=== PATIENT | male | born 1995 | race Two or more races ===

== ENCOUNTER 2019-12-10 04:31 | Emergency (ER) | payer SELFPAY ==
[~2019-12-10] VITALS: Ht 167.6 cm; Wt 68.2 kg
[2019-12-10 04:33] VITALS: BP 136/73
[2019-12-10] MEDS ORDERED: LIDOCAINE 1%/EPI 1:200,000/PF 10 ML VIAL INJ ONE (05:00)
[2019-12-10] MEDS ORDERED: BACITRACIN 0.9 GM PACKET OINTMENT TP ONE (05:00)
== END 2019-12-10 05:35 | disposition home or self-care (01) ==
LOC: EMS 04:31
DX: S01.01XA Laceration without foreign body of scalp, initial encounter (principal); F17.210 Nicotine dependence, cigarettes, uncomplicated; Z88.0 Allergy status to penicillin; W18.39XA Other fall on same level, initial encounter; Y93.89 Activity, other specified; Y92.89 Other specified places as the place of occurrence of the external cause; Y99.8 Other external cause status
CPT/HCPCS: 12001; 99282; 99406; J3490

== ENCOUNTER 2022-12-10 19:54 | Emergency (ER) | payer MEDICAID, OTHER ==
[~2022-12-10] VITALS: Ht 170.2 cm; Wt 72.7 kg
[2022-12-11] VITALS: BP 133/76; PULSE 74; RESP 18; TEMP 98.3
== END 2022-12-11 00:30 | disposition left against medical advice (07) ==
LOC: EMS 19:56
DX: S09.90XA Unspecified injury of head, initial encounter (principal); Z88.2 Allergy status to sulfonamides; Y08.89XA Assault by other specified means, initial encounter; Y93.89 Activity, other specified; Y92.89 Other specified places as the place of occurrence of the external cause; Y99.8 Other external cause status
CPT/HCPCS: 99281; Z7502